=== PATIENT | female | born 2000 | race Caucasian/White ===

== ENCOUNTER 2018-04-03 18:31 | Emergency (ER) | payer BC ==
[2018-04-03 19:52] LABS: #Lymphocytes 0.8 thou/uL (1.20-3.40); #Monocytes 0.1 thou/uL (0.11-0.59); #Neutrophils 11.5 thou/uL (1.40-6.50); %Basophils 0.1 % (0.0-1.0); %Eosinophils 0.1 % (0.0-10.0); %Lymphocytes 6.8 % (28.0-48.0); %Monocytes 0.5 % (0.0-4.0); %Neutrophils 92.5 % (31.0-61.0); Hemoglobin 14.2 g/dL (12.0-16.0); Mean Corpuscular HGB CONC 34.4 g/dL (32.0-36.0); Mean Corpuscular Hemoglobin 30.5 pg (25.0-35.0); Mean Corpuscular Volume 88.8 fl (77.0-87.0); Mean Platelet Volume 5.9 fL (7.4-10.4); Platelet Count 369 thou/uL (130-400); RBC Distribution Width 11.9 % (11.5-14.5); Red Blood Cell (RBC) Count 4.65 mill/uL (4.00-5.20); White Blood Cell (WBC) Count 12.5 thou/uL (4.8-10.8)
[2018-04-03 19:56] LABS: BHCG - Serum Negative (NEGATIVE); Pregs Control Background? CLEAR/WHITE (CLR/WHITE); Pregs Control Bar Appear? YES (CONTROL BAR)
[2018-04-03 20:12] LABS: ALT (SGPT) 15 U/L (8-55); AST (SGOT) 28 U/L (5-34); Albumin 4.4 g/dL (3.5-5.0); Alkaline Phosphatase 54 U/L (40-150); Anion Gap 12 mmol/L (10-20); BUN (Urea Nitrogen) 9 mg/dL (7.0-18.7); Bilirubin, Total 0.3 mg/dL (0.2-1.2); CK (CPK) 30 U/L (29-168); Calc. Creatinine Clearance 0 mL/min (70-130); Calcium 9.5 mg/dL (7.8-10.44); Carbon Dioxide 24 mmol/L (22-29); Chloride 106 mmol/L (98-107); Estimated GFR-MDRD Greater than 90; Globulin 3.2 g/dL (2.4-3.5); Glucose 102 mg/dL (70-105); Potassium 4.2 mmol/L (3.5-5.1); Protein, Total 7.6 g/dL (6.0-8.3); Sodium 138 mmol/L (136-145)
--- NOTE | 2018-04-03 21:12 | CT ---
CT BRAIN WITHOUT CONTRAST: HISTORY: Syncope. COMPARISON: None. FINDINGS: No acute territorial infarct or hemorrhage. No midline shift or mass effect. Ventricular size and e xtraaxial CSF spaces are normal. IMPRESSION: No acute intracranial abnormality. POS: [facility]
--- NOTE | 2018-04-03 21:14 | CT ---
CT CERVICAL SPINE WITHOUT CONTRAST: HISTORY: Trauma. Syncope. Fall. COMPARISON: None. FINDINGS: There is reversal of the normal cervical lordosis, likely positional. The occipital condyles are int act. The odontoid process is intact. There is no fracture or malalignment of the cervical spine. The lung apices are clear. IMPRESSION: No acute fracture or malalignment of the cervical spine. POS: [facility]
== END 2018-04-03 22:20 | disposition home or self-care (01) ==
LOC: ERS 18:31
DX: R55 Syncope and collapse (principal); F41.9 Anxiety disorder, unspecified
CPT/HCPCS: 36415; 70450; 72125; 80053; 82550; 84703; 85025; 93005; 96360; 96361

== ENCOUNTER 2023-02-21 19:29 | Emergency (ER) | payer BC ==
[2023-02-21 20:08] LABS: #Eosinphils 0.2 thou/uL (0.0-0.7); #Lymphocytes 2.8 thou/uL (1.20-3.40); #Monocytes 0.6 thou/uL (0.11-0.59); #Neutrophils 5.7 thou/uL (1.40-6.50); %Basophils 0.3 % (0.0-1.0); %Eosinophils 2.5 % (0.0-10.0); %Monocytes 6.5 % (0.0-10.0); %Neutrophils 60.8 % (42.0-75.0); Hemoglobin 14.1 g/dL (12.0-16.0); Mean Corpuscular HGB CONC 32.4 g/dL (32.0-36.0); Mean Corpuscular Volume 89.4 fl (78.0-98.0); Mean Platelet Volume 6.6 fL (7.4-10.4); Platelet Count 431 10x3/uL (130-400); RBC Distribution Width 11.6 % (11.5-14.5); Red Blood Cell (RBC) Count 4.87 mill/uL (4.20-5.40); White Blood Cell (WBC) Count 9.3 10x3/uL (4.8-10.8)
[2023-02-21 20:15] LABS: BHCG - Serum Negative (NEGATIVE)
[2023-02-21 20:16] LABS: Pregs Control Background? CLEAR/WHITE (CLR/WHITE); Pregs Control Bar Appear? YES (CONTROL BAR)
[2023-02-21 20:27] LABS: ALT (SGPT) 12 U/L (8-55); AST (SGOT) 23 U/L (5-34); Albumin 4.4 g/dL (3.5-5.0); Alkaline Phosphatase 49 U/L (40-110); Anion Gap 13 mmol/L (10-20); BUN (Urea Nitrogen) 10 mg/dL (7.0-18.7); Bilirubin, Total 0.3 mg/dL (0.2-1.2); Calc. Creatinine Clearance 0 mL/min (70-130); Calcium 9.2 mg/dL (7.8-10.44); Carbon Dioxide 22 mmol/L (22-29); Chloride 107 mmol/L (98-107); Estimated GFR 105; Globulin 3.1 g/dL (2.4-3.5); Glucose 105 mg/dL (70-105); Potassium 3.8 mmol/L (3.5-5.1); Protein, Total 7.5 g/dL (6.0-8.3); Sodium 138 mmol/L (136-145)
[2023-02-21 21:49] LABS: Bacteria/HPF 1+ HPF (None Seen); Bilirubin Negative (Negative); Blood, Urine Trace (Negative); Clarity Clear (Clear); Glucose, Urine (Dipstick) Normal (Negative); Ketone, Urine Negative (Negative); Leukocyte 250 Leu/uL (Negative); Mucous/LPF Rare LPF (<2+); Nitrite Negative (Negative); Protein, Urine (Dipstick) 10 mg/dL (Neg-Trace); RBC/HPF 0-3 HPF (0-3); Specific Gravity, Urine 1.026 (1.002-1.036); Squamous Epithelial 0-3 HPF (0-3)
== END 2023-02-22 02:43 | disposition home or self-care (01) ==
LOC: ERS 19:29
DX: S16.1XXA Strain of muscle, fascia and tendon at neck level, initial encounter (principal); R55 Syncope and collapse
CPT/HCPCS: 36415; 72125; 80053; 81003; 81015; 84703; 85025; 93005; 96374

== ENCOUNTER 2024-05-14 13:03 | Inpatient (IN) | payer BC ==
[2024-05-14 13:48] VITALS: BMI 38.7
[2024-05-14] MEDS ORDERED: Morphine 2 MG/ML VIAL SLOW IVP PRN (14:55)
[2024-05-14] MEDS ORDERED: Promethazine HCl 25 MG/ML VIAL IM PRN (14:55)
[2024-05-14] MEDS: TETANUS, DIPHTHERIA TOX,ADULT (TDVAX) 0.5 ML VIAL IM ONE (15:06)
[2024-05-14] MEDS: Sodium Chloride 0.9% 1,000 ML IV SCH (15:17)
[2024-05-14] MEDS: Morphine 4 MG/ML VIAL SLOW IVP PRN (15:17)
[2024-05-14] MEDS: Famotidine/PF 20 mg/2ml Vial SLOW IVP SCH (21:44)
[2024-05-14] MEDS: traMADol HCl 50 MG TAB PO PRN (21:57)
[2024-05-14] MEDS: Sertraline 100 MG TAB PO SCH (23:20)
[2024-05-15 04:28] LABS: #Basophils 0.07 10x3/uL (0.0-0.2); %Basophils 0.8 % (0.0-1.0); %Lymphocytes 45.8 % (21.0-51.0); %Monocytes 6.4 % (0.0-10.0); %Neutrophils 44.8 % (42.0-75.0); Hematocrit 37.2 % (36.0-47.0); Hemoglobin 12.5 g/dL (12.0-16.0); Mean Corpuscular HGB CONC 33.6 g/dL (32.0-36.0); Mean Corpuscular Hemoglobin 30.1 pg (27.0-31.0); Mean Corpuscular Volume 89.6 fL (78.0-98.0); Mean Platelet Volume 8.5 fL (7.4-10.4); Platelet Count 305 10x3/uL (130-400); RBC Distribution Width 12.6 % (11.5-14.5); Red Blood Cell (RBC) Count 4.15 mill/uL (4.20-5.40)
[2024-05-15 04:42] LABS: ALT (SGPT) 13 U/L (8-55); AST (SGOT) 25 U/L (5-34); Albumin 3.3 g/dL (3.5-5.0); Alkaline Phosphatase 41 U/L (40-110); Anion Gap 16 mmol/L (10-20); BUN (Urea Nitrogen) 8 mg/dL (7.0-18.7); Bilirubin, Total 0.6 mg/dL (0.2-1.2); Calc. Creatinine Clearance 215 mL/min (70-130); Calcium 8.3 mg/dL (7.8-10.44); Carbon Dioxide 21 mmol/L (22-29); Chloride 107 mmol/L (98-107); Estimated GFR 123; Globulin 2.9 g/dL (2.4-3.5); Glucose 80 mg/dL (70-105); Potassium 3.6 mmol/L (3.5-5.1); Protein, Total 6.2 g/dL (6.0-8.3); Sodium 140 mmol/L (136-145)
[2024-05-15] MEDS: Ondansetron PF 4 MG/2 ML Vial IVP PRN (06:59)
[2024-05-15] MEDS: Sertraline 100 MG TAB PO SCH (08:43)
[2024-05-15 10:01] LABS: BHCG - Serum Negative (NEGATIVE); Pregs Control Background? CLEAR/WHITE (CLR/WHITE); Pregs Control Bar Appear? YES (CONTROL BAR)
[2024-05-15] MEDS ORDERED: Bupivacaine 0.25% HCL 30 ML VIAL ONE (10:12)
[2024-05-15] MEDS ORDERED: EPINEPHrine 1 MG/ML VIAL ONE (10:12)
[2024-05-15] MEDS ORDERED: Rocuronium Bromide 10 MG/ML (10ML VIAL) ONE (10:14)
[2024-05-15] MEDS ORDERED: fentaNYL PF 100 MCG/2 ML SYRINGE ONE (10:14)
[2024-05-15] MEDS ORDERED: Midazolam HCl 2 mg/2 ml Vial ONE (10:15)
[2024-05-15] MEDS ORDERED: PROPOFOL 20 ML ONE (10:15)
[2024-05-15] MEDS ORDERED: Sodium Chloride 0.9% 100 ML ONE (10:29)
[2024-05-15] MEDS ORDERED: CEFAZOLIN 2 GM VIAL ONE (10:29)
[2024-05-15] MEDS ORDERED: Ketamine In 0.9 % NaCl 50 MG/5 ML SYRINGE ONE (10:55)
[2024-05-15] MEDS ORDERED: Ondansetron PF 4 MG/2 ML Vial ONE ×2 (11:01→12:13)
[2024-05-15] MEDS ORDERED: Dexamethasone 20 MG/5 ML VIAL ONE (11:01)
[2024-05-15] MEDS ORDERED: Esmolol 100 MG/10 ML VIAL ONE (11:19)
[2024-05-15] MEDS ORDERED: NEOSTIGMINE 3 MG/3 ML SYRINGE ONE (11:31)
[2024-05-15] MEDS ORDERED: Glycopyrrolate 0.2 MG/ML 5 ML SYRINGE ONE (11:31)
[2024-05-15] MEDS ORDERED: fentaNYL 50 mcg/mL 1 mL Vial ONE ×3 (11:43→12:50)
[2024-05-15] MEDS ORDERED: Promethazine HCl 25 MG/ML VIAL ONE (12:21)
[2024-05-15] MEDS: Morphine 2 MG/ML VIAL SLOW IVP PRN (14:59)
[2024-05-15] MEDS: Acetaminophen 325 MG TAB PO PRN (20:31)
[2024-05-15 22:41] VITALS: BP 125/82; TEMP 98.4
== END 2024-05-15 21:56 | disposition home or self-care (01) | DRG 419 ==
LOC: SURG A 13:03
PROVIDERS: ADMIT Surgery; ATTEND Surgery
PROC: 0FT44ZZ Resection of Gallbladder, Percutaneous Endoscopic Approach (ICD-10-PCS; principal; 2024-05-15)
PROC: 3E033XZ Introduction of Vasopressor into Peripheral Vein, Percutaneous Approach (ICD-10-PCS; 2024-05-15)
DX: K80.20 Calculus of gallbladder without cholecystitis without obstruction (principal); F41.8 Other specified anxiety disorders
CPT/HCPCS: 36415; 80053; 84703; 85025; 88304; C1713; J0171; J0665; J1100; J2250; J2270; J2272; J2405; J2550; J2704; J3010; J3490; J7050; S0028